=== PATIENT | female | born 1970 | race Caucasian/White ===

== ENCOUNTER 2020-08-11 09:20 | Outpatient (CLI) | payer OTHER, SELFPAY | END 2020-08-11 23:59 | disposition home or self-care (01) | LOC: MLB 09:20 → EDSTATUS 08-19 10:50 | PROVIDERS: ATTEND Internal Medicine Gastroenterology | DX: Z01.812 Encounter for preprocedural laboratory examination (principal); Z20.828 Contact with and (suspected) exposure to other viral communicable diseases; K57.90 Diverticulosis of intestine, part unspecified, without perforation or abscess without bleeding | CPT/HCPCS: U0003 ==